=== PATIENT | male | born 1985 | race Caucasian/White ===

== ENCOUNTER 2018-07-06 16:17 | Emergency (ER) | payer OTHER ==
[2018-07-06 16:33] VITALS: TEMP 98.4
[2018-07-06 17:18] LABS: BILIRUBIN,DIRECT 2.6 mg/dl (0.0-0.2); BILIRUBIN,TOTAL 3.6 mg/dl (0.2-1.0)
[2018-07-06] MEDS ORDERED: SODIUM CHLORIDE 0.9% 1000ML 1,000 ML IV ONE (17:35)
[2018-07-06] MEDS ORDERED: SODIUM CHLORIDE 0.9% FLUSH 10 ML SOL IV PRN (17:43)
[2018-07-06] MEDS ORDERED: PIPERACILLIN/TAZOBACT 3.375 GM PDS IV ONE (17:54)
[2018-07-06] MEDS ORDERED: PIPERACILLIN/TAZOBACT 3.375 GM 3.375 GM in SODIUM CHLORIDE 0.9% 100 ML 100 ML IV ONE (17:54)
[2018-07-06 18:23] VITALS: RESP 16; O2SAT 97
[2018-07-06 18:54] VITALS: BP 106/79; PULSE 101
== END 2018-07-06 18:50 | disposition home or self-care (01) | DRG 866 ==
LOC: ED 16:17
DX: B27.90 Infectious mononucleosis, unspecified without complication (principal); R50.9 Fever, unspecified
CPT/HCPCS: 74177; 82150; 82247; 82248; 86308; 96365; 99284; 99285; J2543; Q9967